=== PATIENT | female | born 1950 | race Caucasian/White ===

== ENCOUNTER 2017-02-17 10:23 | Day surgery (SDC) | payer MEDICARE, SELFPAY ==
[2017-02-17 10:47] VITALS: BP 196/79; PULSE 62; RESP 18; TEMP 36.8; O2SAT 100
[2017-02-17 10:57] VITALS: BP 161/73; PULSE 65; RESP 18; TEMP 36.8; O2SAT 98
[2017-02-17 11:30] VITALS: BP 139/75; PULSE 75; RESP 20
[2017-02-17 11:31] VITALS: BP 180/95; PULSE 80; RESP 18
--- NOTE | 2017-02-17 11:31 | HMH.PMPROC ---
- Procedure Date: 02/17/17 (n) Time: 11:32 Anesthesiologist:: Arturo Mcarthur CRNA Complications:: None Pre-procedure Diagnosis:: right sacroiliitis Post-procedure Diagnosis:: Same Indications for Procedure:: Very pleasant 67-year-old white female we have been treating for quite some time for chronic low back pain secondary to degenerative disc disease lumbar multiple levels. Lumbar postlaminectomy syndrome. She currently is being managed with intrathecal pain pump. She is doing very well in terms of her low back pain. However, she has right SI joint pain that she describes as sharp, stabbing. She presents to our procedure clinic today for right SI joint injection per Procedure Details:: Procedure: Right sacroliliac joint injection under fluoroscopy Informed consent was obtained and the risk and benefits of the procedure were explained to the patient.~ The patient was taken to the procedure room and noninvasive monitors were placed including noninvasive blood pressure cuff and pulse oximeter.~ The patient was placed prone on the procedure table.~ The~ right hip was cleansed using Betadine as a cleansing solution.~ C-arm fluorosocpy was used to view the right SI joint.~ The skin and subcutaneous tissues were anesthetized using Lidocaine 1.5% and a 25-gauge needle.~ After this, a 22-gauge spinal needle was inserted under fluoroscopic guidance into the inferior aspect of the right SI joint.~ Omnipaque dye was injected and a good spread was seen throughout the joint.~ After this, approximately 5 mL of bupivacaine 0.25% and Depo-Medrol 40 mg was incrementally injected into the sacroiliac joint.~ The patient tolerated the procedure well with no complications.~ The patient was observed in the Pain Clinic, then discharged home neurologically intact.~ Plan and Disposition:: She was reevaluated 10 minutes post procedure. She is doing very well. She will return to see us in the pain quite further evaluation.
== END 2017-02-17 11:44 | disposition home or self-care (01) ==
LOC: SC.PAINP 10:26
PROVIDERS: Family Provider Internal Medicine Adolescent Medicine; PCP Internal Medicine Adolescent Medicine; Visit Provider Nurse Anesthetist, Certified Registered
DX: M46.1 Sacroiliitis, not elsewhere classified (principal)
CPT/HCPCS: 27096; G0260; J1040

== ENCOUNTER → 2017-03-13 08:57 | Day surgery (SDC) | payer MEDICARE, SELFPAY ==
[2017-03-13 09:05] VITALS: BP 176/77; PULSE 72; RESP 18; TEMP 36.4; O2SAT 97; BMI 24.5
--- NOTE | 2017-03-13 09:10 | HMH.PMPROC ---
- Procedure Date: 03/13/17 Time: 09:10 Anesthesiologist:: Kerwin Jason MD Complications:: None Pre-procedure Diagnosis:: Degenerative disc disease of lumbar spine multiple levels with postlaminectomy syndrome and sacroiliitis Post-procedure Diagnosis:: Same Indications for Procedure:: This patient is a pleasant 67 white female who we have been treating for low back pain with degenerative disc disease of lumbar spine multiple levels and postlaminectomy home. She currently has an intrathecal Dilaudid pain pump currently going at 1 mg per day. She is doing well with her pump. Her last increase was a little too much so we will decrease her down today 20% to 0.8 mg per day. He does have an antalgic gait. Motor strength of the lower extremities is 5/5. There is no gross sensory deficit. Procedure Details:: Informed consent was obtained and the risks and benefits of the procedure was explained to the patient. The patient was taken to the procedure room. The pump was interrogated. The area over the pump was prepped using ChloraPrep. The pump was accessed with a 22-gauge needle. Approximately 6.5 mL's of the intrathecal solution was withdrawn and discarded. The pump was then refilled with 20 mL's of intrathecal Dilaudid 10 mg per ml. The pump was interrogated and the infusion was decreased to 0.8 mg per day. The patient tolerated the procedure well with no complication. Plan and Disposition:: We will follow-up with her at her next pump refill. If she needs another SI joint injection she is to call us in the pain clinic.
[2017-03-13 09:16] VITALS: BP 148/80; PULSE 7; RESP 18; O2SAT 96
[2017-03-13 09:18] VITALS: PULSE 74; RESP 20; O2SAT 94
[2017-03-13 09:28] VITALS: BP 182/79; PULSE 66; RESP 18; TEMP 36.4; O2SAT 96
== END ==
PROVIDERS: Family Provider Internal Medicine Adolescent Medicine; PCP Internal Medicine Adolescent Medicine; Visit Provider Anesthesiology
DX: M51.36 Other intervertebral disc degeneration, lumbar region (principal); M96.1 Postlaminectomy syndrome, not elsewhere classified
CPT/HCPCS: 62370

== ENCOUNTER 2017-04-17 09:21 | Day surgery (SDC) | payer MEDICARE, SELFPAY ==
[2017-04-17 09:49] VITALS: BP 144/73; PULSE 74; RESP 18; TEMP 36.7; O2SAT 96; BMI 24.0
--- NOTE | 2017-04-17 11:05 | HMH.PMPROC ---
- Procedure Date: 04/17/17 Time: 11:05 Anesthesiologist:: Kerwin Jason MD Complications:: None Pre-procedure Diagnosis:: Sacroiliitis Post-procedure Diagnosis:: Same Indications for Procedure:: This patient is a pleasant 67-year-old white female who we have been treating for low back pain with degenerative disease of lumbar spine multiple levels with postlaminectomy syndrome. She is tender over her right SI joint. She does have a positive Kirstin's test on the right side. We will do a right SI joint injection under fluoroscopy today to see if this gives her some additional benefit. She is also doing well on her intrathecal Dilaudid pain pump. Procedure Details:: Right SI joint injection under fluoroscopy Informed consent was obtained and the risks and benefits of the procedure was going to the patient. Patient was taken to the procedure room. Patient was placed prone on the procedure table. The right hip was prepped using ChloraPrep. The skin and subcutaneous tissues were anesthetized using lidocaine. I placed a 22-gauge spinal needle into the inferior aspect of the right SI joint. Needle placement was confirmed with dye. After this we injected 5 mL bupivacaine 0.25% and Depo-Medrol 40 mg into the right SI joint. The patient tolerated the procedure well with no complication. Plan and Disposition:: We will follow-up with her in 2 weeks. We will reevaluate her symptoms at that time.
[2017-04-17 11:07] VITALS: BP 185/96; PULSE 84; RESP 18
[2017-04-17 11:09] VITALS: BP 184/75; PULSE 80; RESP 18
[2017-04-17 11:18] VITALS: BP 161/71; PULSE 88; RESP 18; TEMP 36.4; O2SAT 95
== END 2017-04-17 11:20 | disposition home or self-care (01) ==
LOC: SC.PAINP 09:22
PROVIDERS: Family Provider Internal Medicine Adolescent Medicine; PCP Internal Medicine Adolescent Medicine; Visit Provider Anesthesiology
DX: M46.1 Sacroiliitis, not elsewhere classified (principal)
CPT/HCPCS: 27096; G0260; J1040; Q9966

== ENCOUNTER → 2017-05-04 09:31 | Outpatient (POV) | payer MEDICARE, SELFPAY ==
[2017-05-04 09:50] VITALS: BP 216/90; PULSE 74; RESP 18; TEMP 36.5; O2SAT 99; BMI 24.1
--- NOTE | 2017-05-04 10:14 | HMH.PMPROC ---
- Procedure Date: 05/04/17 Time: 10:00 Anesthesiologist:: Geno Stout APRN Complications:: None Pre-procedure Diagnosis:: Degenerative disc disease of the lumbar spine, postlaminectomy syndrome and sacroiliitis Post-procedure Diagnosis:: Same Indications for Procedure:: This patient is a pleasant 67-year-old white female who presents today for follow-up after left SI joint injection. Patient states she did get some moderate relief from it. Patient has never had full relief of her symptoms. Patient currently on Lyrica 150 mg twice daily. Patient is also taking Percocet 5 mg twice a day for her other pain. Patient states the pump is helping. Patient is wondering however if she needs to take it out due to her increase in SI pain. Patient and I had a long discussion about how the pump does not cover SI joint pain. Patient was also interested in nerve stimulation. Patient's currently being managed with a Dilaudid and bupivacaine infusion of 0.8 mg a day. Patient denies any side effects. We will increase this today. Physical Exam General: Alert and oriented x3, no acute distress, pleasant and cooperative, [on room air] Lungs: Resps E/U, Symmetrical chest expansion Eyes: PERRL Musculoskeletal: Flexion and extension of lumbar spine somewhat guarded secondary to pain, deep tendon reflexes normal, strength in upper and lower extremities [5/5], lightly antalgic gait noted Neurological: speech clear, seamless hosiery knitter equal, no gross sensory deficits Procedure Details:: Form consent was obtained and the risk and benefits of the procedure were explained to the patient. The patient was taken to the procedure room where noninvasive monitoring was placed including noninvasive blood pressure cuff and pulse oximeter. The pump was interrogated and the daily rate was changed from 0.8 mg per day to 1 mg per day. Patient's PTC was changed to 0.1 mg every 4 hours up to 6 times a day. Patient tolerated procedure well. Was instructed to call our office if she has any side effects. Plan and Disposition:: Patient is currently on Lyrica 150 mg 1 p.o. twice daily we will increase her to 150 mg 1 p.o. 3 times daily. I gave the patient nerve stimulation information she is going to review this and we will discuss that at her next appointment. I will see the patient back when her pain pump needs refilling. Patient's [facility] #[id number] reviewed and appropriate. Patient will be having a urine drug screen today. We will continue to monitor compliance. This note was dictated using voice recognition software may contain errors or omissions
--- NOTE | 2017-05-04 10:18 | P.PCN_ITS ---
- Procedure Date: 05/04/17 Time: 10:00 Anesthesiologist:: Geno Stout APRN Complications:: None Pre-procedure Diagnosis:: Degenerative disc disease of the lumbar spine, postlaminectomy syndrome and sacroiliitis Post-procedure Diagnosis:: Same Indications for Procedure:: This patient is a pleasant 67-year-old white female who presents today for follow-up after left SI joint injection. Patient states she did get some moderate relief from it. Patient has never had full relief of her symptoms. Patient currently on Lyrica 150 mg twice daily. Patient is also taking Percocet 5 mg twice a day for her other pain. Patient states the pump is helping. Patient is wondering however if she needs to take it out due to her increase in SI pain. Patient and I had a long discussion about how the pump does not cover SI joint pain. Patient was also interested in nerve stimulation. Patient's currently being managed with a Dilaudid and bupivacaine infusion of 0.8 mg a day. Patient denies any side effects. We will increase this today. Physical Exam General: Alert and oriented x3, no acute distress, pleasant and cooperative, [ on room air] Lungs: Resps E/U, Symmetrical chest expansion Eyes: PERRL Musculoskeletal: Flexion and extension of lumbar spine somewhat guarded secondary to pain, deep tendon reflexes normal, strength in upper and lower extremities [5/5], lightly antalgic gait noted Neurological: speech clear, substation technician equal, no gross sensory deficits Procedure Details:: Form consent was obtained and the risk and benefits of the procedure were explained to the patient. The patient was taken to the procedure room where noninvasive monitoring was placed including noninvasive blood pressure cuff and pulse oximeter. The pump was interrogated and the daily rate was changed from 0.8 mg per day to 1 mg per day. Patient's PTC was changed to 0.1 mg every 4 hours up to 6 times a day. Patient tolerated procedure well. Was instructed to call our office if she has any side effects. Plan and Disposition:: Patient is currently on Lyrica 150 mg 1 p.o. twice daily we will increase her to 150 mg 1 p.o. 3 times daily. I gave the patient nerve stimulation information she is going to review this and we will discuss that at her next appointment. I will see the patient back when her pain pump needs refilling. Patient's [facility] #[id number] reviewed and appropriate. Patient will be having a urine drug screen today. We will continue to monitor compliance. This note was dictated using voice recognition software may contain errors or omissions
[2017-05-04 13:23] LABS: Amphetamine/Metha Screen,Urine Negative ng/mL (<1000); Barbiturates Screen,Urine Negative ng/mL (<200); Benzodiazepines Screen,Urine Negative ng/mL (200); Cannabinoid Screen,Urine Negative ng/mL (<50); Cocaine Screen,Urine Negative ng/g (<300); Methadone Screen,Urine Negative ng/mL (<300); Opiate Screen,Urine Negative ng/mL (<300); Phencyclidine Screen,Urine Negative ng/mL (<25)
[2017-05-09 10:20] LABS: Oxycodone (GC/MS) 212 ng/mL (Cutoff=100)
[2017-05-09 18:37] LABS: Opiates Negative (Cutoff=100); Oxymorphone (GC/MS) 477 ng/mL (Cutoff=100)
== END ==
PROVIDERS: Family Provider Internal Medicine Adolescent Medicine; PCP Internal Medicine Adolescent Medicine; Visit Provider Clinical Nurse Specialist Family Health
DX: M46.1 Sacroiliitis, not elsewhere classified (principal); M51.36 Other intervertebral disc degeneration, lumbar region; Z79.891 Long term (current) use of opiate analgesic
CPT/HCPCS: 99212; 80305; 80361; 80365; G0480

== ENCOUNTER → 2017-05-27 12:09 | Outpatient (CLI) | payer MEDICARE, SELFPAY ==
[2017-05-27 12:45] LABS: Basophils % 0.7 % (0.1-2.0); Eosinophils # 0.2 K/mm3 (0.0-0.4); Hematocrit 35.6 % (37.0-47.0); Hemoglobin 11.6 g/dL (12.2-16.2); Lymphocytes # 1.1 K/mm3 (0.7-4.5); Lymphocytes % 21.4 K/mm3 (10-50); Mean Corpuscular HGB Conc 32.7 g/dL (31.8-35.4); Mean Corpuscular Hemoglobin 32.6 pg (27.0-31.2); Mean Corpuscular Volume 99.7 fl (81-99); Mean Platelet Volume 7.3 fl (7.4-10.4); Monocytes # 0.3 K/mm3 (0.1-1.0); Monocytes % 6.1 % (1.7-9.3); Neutrophils # 3.6 K/mm3 (1.8-7.8); Neutrophils % 68.7 % (37.0-80.0); Platelet Count 317 K/mm3 (142-424); Red Blood Count 3.57 M/mm3 (4.20-5.40); Red Cell Distribution Width 13.9 % (11.5-17.5); White Blood Count 5.3 K/mm3 (4.8-10.8)
[2017-05-27 15:24] LABS: Alanine Aminotransferase 16 U/L (12-78); Albumin Level 3.2 gm/dL (3.4-5.0); Alkaline Phosphatase 94 U/L (46-116); Anion Gap 10.1 mEq/L (5-15); Bilirubin,Total 0.3 mg/dL (0.2-1.0); Blood Urea Nitrogen 9 mg/dL (7-18); Calcium 8.9 mg/dL (8.5-10.1); Carbon Dioxide 31 mmol/L (21.0-32.0); Chloride 95 mmol/L (98-107); Cholesterol 146 mg/dL (140-200); Creatinine,Serum 0.87 mg/dL (0.55-1.02); Estimated Glomerular Filt Rate 65 ml/min (>60); Ferritin 286 ng/mL (8-388); GFR (African American) 79 ML/MIN (>60); Globulin 3.2 gm/dl (1.3-3.2); Glucose 88 mg/dL (74-106); HDL Cholesterol 48 mg/dL (29-89); LDL Cholesterol 72 mg/dL (0-130); Sodium 131 mmol/L (136-145); Thyroid Stimulating Hormone 1.39 uIU/ml (0.358-3.740); Total Protein,Serum 6.4 gm/dL (6.4-8.2); Triglycerides 131 mg/dL (30-200); VLDL Cholesterol 26 mg/dL (0-40)
[2017-05-27 15:30] LABS: Potassium 5.1 mmoL/L (3.5-5.1)
[2017-05-27 15:31] LABS: Aspartate Amino Transferase 27 U/L (15-37)
[2017-05-29 10:48] LABS: Vitamin B12 1718 pg/mL (232-1245)
== END ==
PROVIDERS: Visit Provider Internal Medicine Adolescent Medicine
DX: E53.8 Deficiency of other specified B group vitamins (principal); D50.8 Other iron deficiency anemias; E78.5 Hyperlipidemia, unspecified; E03.9 Hypothyroidism, unspecified
CPT/HCPCS: 36415; 80053; 80061; 82607; 82728; 84443; 85025

== ENCOUNTER → 2017-10-19 15:16 | Outpatient (POV) | payer MEDICARE, SELFPAY ==
[2017-10-19 15:47] VITALS: BP 184/81; PULSE 79; RESP 18; O2SAT 98; BMI 25.2
--- NOTE | 2017-10-19 16:38 | HMH.PMPROC ---
- Procedure Date: 10/19/17 Time: 16:30 Anesthesiologist:: Geno Stout APRN Complications:: None Pre-procedure Diagnosis:: degenerative disc disease lumbar spine with lumbar radiculopathy, postlaminectomy syndrome and sacroiliitis Post-procedure Diagnosis:: Same Indications for Procedure:: Patient is a pleasant 67-year-old white female who presents today for follow-up. Patient has an intrathecal pain pump going at 0.1 mg every 2 hours for total daily dose of 1.32 mg of Dilaudid/bupivacaine a day. Patient is having increased pain. Patient also having migraines. Patient also medically managed with Percocet 5 mg 1 p.o. twice daily. Denies side effects to any of her medication. Patient's [facility] #[id number] reviewed and appropriate. Patient's UDS has been appropriate in the past. Patient would like an increase to her intrathecal pain pump infusion today due to her increased pain. Physical Exam General: Alert and oriented x3, no acute distress, pleasant and cooperative, [on room air] Lungs: Resps E/U, Symmetrical chest expansion, Eyes: PERRL Musculoskeletal: Flexion and extension of lumbar spine somewhat guarded secondary to pain, deep tendon reflexes normal, strength in upper and lower extremities [5/5], [abnormal gait noted] positive Kirstin's test right side Neurological: speech clear, sight effects specialist equal, no gross sensory deficits Procedure Details:: Informed consent was obtained and the risk and benefits of the procedure were explained to the patient. The patient was taken to the procedure room where noninvasive monitoring was placed including noninvasive blood pressure cuff and pulse oximeter. Patient's pump was interrogated. The infusion rate was increased to 0.17 mg every 2 hours. The patient tolerated the procedure well. Plan and Disposition:: We will refill the patient's Percocet 5 mg [address] Jason is reviewed this chart and agrees with this plan of care. We will send her to physical therapy for dry needling of the right SI joint. I believe it may be beneficial. I will follow-up with the patient in 1 month. Patient's been instructed to call the office if she has any issues prior to her next appointment. This note was dictated using voice recognition software and may contain errors or omissions
--- NOTE | 2017-10-19 16:41 | P.PCN_ITS ---
- Procedure Date: 10/19/17 Time: 16:30 Anesthesiologist:: Geno Stout APRN Complications:: None Pre-procedure Diagnosis:: degenerative disc disease lumbar spine with lumbar radiculopathy, postlaminectomy syndrome and sacroiliitis Post-procedure Diagnosis:: Same Indications for Procedure:: Patient is a pleasant 67-year-old white female who presents today for follow-up. Patient has an intrathecal pain pump going at 0.1 mg every 2 hours for total daily dose of 1.32 mg of Dilaudid/bupivacaine a day. Patient is having increased pain. Patient also having migraines. Patient also medically managed with Percocet 5 mg 1 p.o. twice daily. Denies side effects to any of her medication. Patient's [facility] #[id number] reviewed and appropriate. Patient's UDS has been appropriate in the past. Patient would like an increase to her intrathecal pain pump infusion today due to her increased pain. Physical Exam General: Alert and oriented x3, no acute distress, pleasant and cooperative, [on room air] Lungs: Resps E/U, Symmetrical chest expansion, Eyes: PERRL Musculoskeletal: Flexion and extension of lumbar spine somewhat guarded secondary to pain, deep tendon reflexes normal, strength in upper and lower extremities [5/5], [abnormal gait noted] positive Kirstin's test right side Neurological: speech clear, surgical garment inspector equal, no gross sensory deficits Procedure Details:: Informed consent was obtained and the risk and benefits of the procedure were explained to the patient. The patient was taken to the procedure room where noninvasive monitoring was placed including noninvasive blood pressure cuff and pulse oximeter. Patient's pump was interrogated. The infusion rate was increased to 0.17 mg every 2 hours. The patient tolerated the procedure well. Plan and Disposition:: We will refill the patient's Percocet 5 mg [address] Jason is reviewed this chart and agrees with this plan of care. We will send her to physical therapy for dry needling of the right SI joint. I believe it may be beneficial. I will follow-up with the patient in 1 month. Patient's been instructed to call the office if she has any issues prior to her next appointment. This note was dictated using voice recognition software and may contain errors or omissions
== END ==
PROVIDERS: Family Provider Internal Medicine Adolescent Medicine; PCP Internal Medicine Adolescent Medicine; Visit Provider Clinical Nurse Specialist Family Health
DX: M51.16 Intervertebral disc disorders with radiculopathy, lumbar region (principal); M96.1 Postlaminectomy syndrome, not elsewhere classified; M46.1 Sacroiliitis, not elsewhere classified
CPT/HCPCS: 62368; 99213

== ENCOUNTER → 2017-11-27 12:14 | Outpatient (CLI) | payer MEDICARE, SELFPAY ==
--- NOTE | 2017-11-27 12:34 | XR_ITS ---
XR chest 2V HISTORY: ITS.REASON: COUGH, history of lung cancer, previous smoker ORDERING PHYSICIAN: Benny Brooke MD PATIENT AGE: 67 years COMPARISON: None FINDINGS: There are no previous exams available for comparison. The heart size is unremarkable. There is increased density in the left hilum and suprahilar region as well as a left upper lobe medially. These findings could be due to postradiation treatment and/or residual neoplasm. Please correlate with patient's old exams if available. There is also silhouetting out of the left hemidiaphragm with some tenting of the hemidiaphragm on the left which could be either acute or chronic. The right lung is clear. No acute bony anomalies. IMPRESSION: Nonspecific increased density in the left upper lobe medially and left hilum. This could be due to postradiation changes and or residual neoplasm. Patchy density left lung base which may be due to an area of atelectasis, infiltrate, or fibrosis
[2017-11-27 12:54] LABS: Basophils % 0.9 % (0.1-2.0); Eosinophils # 0.3 K/mm3 (0.0-0.4); Eosinophils % 6.8 % (0.1-12.0); Hematocrit 36.8 % (37.0-47.0); Hemoglobin 11.9 g/dL (12.2-16.2); Lymphocytes # 1.1 K/mm3 (0.7-4.5); Lymphocytes % 29.4 K/mm3 (10-50); Mean Corpuscular HGB Conc 32.4 g/dL (31.8-35.4); Mean Corpuscular Hemoglobin 32.4 pg (27.0-31.2); Mean Corpuscular Volume 100.2 fl (81-99); Mean Platelet Volume 6.6 fl (7.4-10.4); Monocytes # 0.2 K/mm3 (0.1-1.0); Monocytes % 6.3 % (1.7-9.3); Neutrophils # 2.1 K/mm3 (1.8-7.8); Neutrophils % 56.6 % (37.0-80.0); Platelet Count 301 K/mm3 (142-424); Red Blood Count 3.68 M/mm3 (4.20-5.40); Red Cell Distribution Width 13.1 % (11.5-17.5); White Blood Count 3.8 K/mm3 (4.8-10.8)
[2017-11-27 14:32] LABS: Alanine Aminotransferase 19 U/L (12-78); Albumin Level 3.4 gm/dL (3.4-5.0); Albumin/Globulin Ratio 1.2 (1.1-1.8); Alkaline Phosphatase 97 U/L (46-116); Anion Gap 11.4 mEq/L (5-15); Aspartate Amino Transferase 20 U/L (15-37); Bilirubin,Total 0.3 mg/dL (0.2-1.0); Blood Urea Nitrogen 9 mg/dL (7-18); Calcium 8.7 mg/dL (8.5-10.1); Carbon Dioxide 31 mmol/L (21.0-32.0); Chloride 100 mmol/L (98-107); Chol/HDL Ratio 2.7 (1-3.5); Cholesterol 138 mg/dL (140-200); Creatinine,Serum 1.03 mg/dL (0.55-1.02); Estimated Glomerular Filt Rate 54 ml/min (>60); Free Thyroxine Index 2.8 ug/dL (5.93-13.13); GFR (African American) 65 ML/MIN (>60); Globulin 2.8 gm/dl (1.3-3.2); Glucose 81 mg/dL (74-106); HDL Cholesterol 51 mg/dL (29-89); LDL Cholesterol 55 mg/dL (0-130); Potassium 4.4 mmoL/L (3.5-5.1); Sodium 138 mmol/L (136-145); Thyroid Stimulating Hormone 2.33 uIU/ml (0.358-3.740); Total Protein,Serum 6.2 gm/dL (6.4-8.2); Triglycerides 161 mg/dL (30-200); Triiodothryronine (T3) Uptake 35 % (31-39); VLDL Cholesterol 32 mg/dL (0-40)
[2017-11-28 10:21] LABS: Vitamin B12 1870 pg/mL (232-1245)
== END ==
PROVIDERS: PCP Internal Medicine Adolescent Medicine; Visit Provider Internal Medicine Adolescent Medicine
DX: E78.5 Hyperlipidemia, unspecified (principal); E03.9 Hypothyroidism, unspecified; E53.8 Deficiency of other specified B group vitamins; D50.8 Other iron deficiency anemias; R05 Cough
CPT/HCPCS: 36415; 71046; 80053; 80061; 82607; 84436; 84443; 84479; 85025

== ENCOUNTER → 2017-12-01 11:48 | Outpatient (POV) | payer MEDICARE, SELFPAY ==
[2017-12-01 12:10] VITALS: BP 163/78; PULSE 86; RESP 20; O2SAT 98; BMI 25.7
--- NOTE | 2017-12-01 13:18 | HMH.PMPROC ---
- Procedure Date: 12/01/17 Time: 13:18 Anesthesiologist:: Kerwin Jason MD Complications:: None Pre-procedure Diagnosis:: Degenerative disc disease of lumbar spine with lumbar radiculopathy symptoms and postlaminectomy syndrome lumbar spine with sacroiliitis Post-procedure Diagnosis:: Same Indications for Procedure:: This patient is a pleasant 67-year-old white female who currently has an intrathecal Dilaudid/bupivacaine pain pump going at 2.4 mg/day for low back pain, leg pain and chest wall pain. She continues to have increasing pain in her low back and legs. She also has migraines. She is unable to do any housework in functionality has decreased significantly. She does not feel that her pump is helping her. She is done several injections again which have only given her temporary benefit. We will plan to decrease her intrathecal infusion to 50% today. We will work towards explant. I have talked her possibly about trialing spinal cord stimulator to see if this may help better with her pain symptoms. Procedure Details:: Adjustment and analysis of intrathecal pain pump Informed consent was obtained and the risk and benefits of the procedure was explained to the patient. Patient was taken to the procedure room. The pump was interrogated. Intrathecal Dilaudid/bupivacaine infusion was decreased to 1.2 mg/day from 2.4 mg/day. Patient tolerated the procedure well with no complications. Plan and Disposition:: We will follow-up with her in 1 week. We will reevaluate her symptoms. Will further decrease her 50% depending on her symptoms. Again I have offered her spinal cord stimulation as an alternative to help with her pain symptoms.
== END ==
PROVIDERS: Family Provider Internal Medicine Adolescent Medicine; PCP Internal Medicine Adolescent Medicine; Visit Provider Anesthesiology
DX: M51.36 Other intervertebral disc degeneration, lumbar region (principal); M96.1 Postlaminectomy syndrome, not elsewhere classified
CPT/HCPCS: 62368

== ENCOUNTER → 2017-12-18 10:12 | Outpatient (POV) | payer MEDICARE, SELFPAY ==
[2017-12-18 11:29] VITALS: BP 184/79; PULSE 70; RESP 18; O2SAT 96; BMI 22.8
--- NOTE | 2017-12-18 11:38 | P.PCN_ITS ---
- Procedure Date: 12/18/17 Time: 11:36 Anesthesiologist:: Kerwin Jason MD Complications:: None Pre-procedure Diagnosis:: Degenerative disc disease of lumbar spine with lumbar radiculopathy symptoms. Degenerative disc disease of the cervical spine with cervical radiculopathy symptoms. Post laminectomy syndrome lumbar spine with sacroiliitis Post-procedure Diagnosis:: Same Indications for Procedure:: Patient is a pleasant 67-year-old white female who currently has an intrathecal Dilaudid/bupivacaine pain pump in place going at 1.2 mg/day. We decrease her 50% at her last visit. She is low back pain, leg pain, chest wall pain, neck pain and migraines. She has not noticed a significant difference in her pain symptoms. She actually seems in a better mood in better spirits today than previously. We will further decrease her 50% to 0.6 mg/day in hopes of weaning her off intrathecal pain pump. Procedure Details:: Adjustment of intrathecal pain pump infusion Informed consent was obtained and the risk and benefits of the procedure was explained to the patient. Patient was taken to the procedure room. Intrathecal Dilaudid/bupivacaine pain pump infusion was decreased to 0.6 mg per day from 1.2 mg/day. Patient tolerated the procedure well with no complications. Plan and Disposition:: We will follow-up with her in 2 weeks. We will reevaluate her symptoms. We will further decrease her at that time to 0.3 mg/day in hopes of weaning her completely off her intrathecal pain pump infusion. She also has significant pa in over the right trochanteric bursa. She is tender over the right trochanteric bursa. We will seek approval for a right trochanteric bursa injection under fluoroscopy
== END ==
PROVIDERS: PCP Internal Medicine Adolescent Medicine; Visit Provider Anesthesiology
DX: M51.16 Intervertebral disc disorders with radiculopathy, lumbar region (principal); M50.10 Cervical disc disorder with radiculopathy, unspecified cervical region; M96.1 Postlaminectomy syndrome, not elsewhere classified; M46.1 Sacroiliitis, not elsewhere classified
CPT/HCPCS: 62368

== ENCOUNTER → 2018-01-08 14:43 | Outpatient (POV) | payer MEDICARE, SELFPAY ==
[2018-01-08 15:05] VITALS: BP 191/86; PULSE 75; RESP 18; O2SAT 98; BMI 25.9
--- NOTE | 2018-01-08 16:24 | HMH.PMPROC ---
- Procedure Date: 01/08/18 Time: 16:29 Anesthesiologist:: Kerwin Jason MD Complications:: None Pre-procedure Diagnosis:: Degenerative disc disease of lumbar spine with lumbar radiculopathy symptoms and postlaminectomy syndrome lumbar spine. Post-procedure Diagnosis:: Same Indications for Procedure:: Degenerative disc disease of lumbar spine with lumbar radiculopathy symptoms and postlaminectomy syndrome of lumbar spine with trochanteric bursitis and sacroiliitis. She also has degenerative disc disease of the cervical spine with cervical radiculopathy symptoms. She is not getting much relief from her Dilaudid/bupivacaine pain pump. We will turn her pump off today. We will increase her Percocet to 5 mg 4 times a day. We will also schedule her for repeat right trochanteric bursa and right SI joint injection under fluoroscopy. Procedure Details:: Reprogram of intrathecal pain pump infusion Consent was obtained and the risk and benefits of the procedure was explained to the patient. Patient was taken to the procedure room. The pump was interrogated. Intrathecal Dilaudid/bupivacaine pain pump was turned off. Patient tolerated the procedure well with no complications. Plan and Disposition:: We will follow-up with her in 2 weeks. We will plan on a right SI joint and right trochanteric bursa injection. We will also increase her Percocet to 5 mg 1 tablet 4 times a day. She just filled her Percocet 5 mg 1 tablet twice a day on 12/23/2017. I told her to increase this to 4 times a day. We will write her a new prescription. [place] and urine drug screen are all appropriate.
== END ==
PROVIDERS: PCP Internal Medicine Adolescent Medicine; Visit Provider Anesthesiology
DX: M51.16 Intervertebral disc disorders with radiculopathy, lumbar region (principal); M96.1 Postlaminectomy syndrome, not elsewhere classified
CPT/HCPCS: 62368

== ENCOUNTER → 2018-01-26 11:11 | Outpatient (POV) | payer MEDICARE, SELFPAY ==
[2018-01-26 11:43] VITALS: BP 140/75; PULSE 88; RESP 18; O2SAT 98; BMI 25.4
--- NOTE | 2018-01-26 12:25 | P.PCN_ITS ---
- Procedure Date: 01/26/18 Time: 11:30 Anesthesiologist:: Geno Stout APRN Complications:: None Pre-procedure Diagnosis:: Degenerative disc disease lumbar spine, chest wall pain Post-procedure Diagnosis:: Same Indications for Procedure:: Patient is a pleasant 68-year-old white female who presents today carefully she rates her pain a 10 out of 10 she states she is in constant pain. Patient's intrathecal pain pump was turned off patient stated she did not believe it was helping however she is noticed that her chest wall pain secondary to chemo has returned. Patient states she is miserable. Patient and I had a discussion in which way she would like to go now. We will try turning her pain pump back on. She has a Dilaudid intrathecal pain pump. Physical Exam General: Alert and oriented x3, no acute distress, pleasant and cooperative, [on room air] Lungs: Resps E/U, Symmetrical chest expansion, Eyes: PERRL Musculoskeletal: Flexion and extension of lumbar and thoracic spine somewhat guarded secondary to pain, deep tendon reflexes normal, strength in upper and lower extremities [5/5], [abnormal gait noted] Neurological: speech clear, shipboard intelligence analyst equal, no gross sensory deficits Procedure Details:: Informed consent was obtained and the risk and benefits of the procedure were explained to the patient. The patient was taken to the procedure room where noninvasive monitoring was placed including noninvasive blood pressure cuff and pulse oximeter. Patient's pump was interrogated. The infusion rate was started at 0.1 mg/day. The patient tolerated the procedure well. Plan and Disposition:: We will see the patient back in 2 weeks and reassess her symptoms at that time. At this time she does Percocet 5 mg 1 p.o. 4 times daily. I discussed with her that she could continue taking that at this time. This note was dictated using voice recognition software and may contain errors or omissions
== END ==
PROVIDERS: PCP Internal Medicine Adolescent Medicine; Visit Provider Clinical Nurse Specialist Family Health
DX: M51.36 Other intervertebral disc degeneration, lumbar region (principal); R07.89 Other chest pain; Z96.89 Presence of other specified functional implants
CPT/HCPCS: 62368

== ENCOUNTER → 2018-02-05 11:49 | Outpatient (POV) | payer MEDICARE, SELFPAY ==
[2018-02-05 11:59] VITALS: BP 160/78; PULSE 78; RESP 16; O2SAT 98; BMI 21.2
--- NOTE | 2018-02-05 12:59 | HMH.PAINSOAP ---
[facility] Pain Management SOAP Note Subjective:: This patient is a pleasant 68-year-old white female who we are treating for low back pain with lumbar radicular symptoms, chest wall pain and migraines. She initially had her pump turned off however her pain in her chest wall and low back increase significantly so she requested that her pump be turned back on. She is currently at 0.1 mg/day of intrathecal Dilaudid. She would like an increase today, however, she is on Percocet 5 mg 4 times a day. I told her that if we do increase her pump we would have to reduce her Percocet. Patient has decided that she would not want to reduce her Percocet so she will remain at the same dose of 0.1 mg/day of intrathecal Dilaudid. She will also continue her Percocet 5 mg 4 times a day. She continues with significant migrainous symptoms. Will refer her to Dr. Thompson for evaluation and recommendations. Objective:: Alert and oriented x3 no acute distress. Patient does have an antalgic gait. Motor strength of the lower extremities is 5/5. There is no gross sensory deficit. Intrathecal Dilaudid pain pump is currently going at 0.1 mg/day. Assessment:: Degenerative disease of lumbar spine with lumbar radiculopathy symptoms. Migraine symptoms. Chest wall pain. Plan:: Patient has decided that she would not want to reduce her Percocet so she will remain at the same dose of 0.1 mg/day of intrathecal Dilaudid. She will also continue her Percocet 5 mg 4 times a day. She continues with significant migrainous symptoms. Will refer her to Dr. Thompson for evaluation and recommendations.
== END ==
PROVIDERS: PCP Internal Medicine Adolescent Medicine; Visit Provider Anesthesiology
DX: M51.16 Intervertebral disc disorders with radiculopathy, lumbar region (principal); R07.89 Other chest pain; R51 Headache
CPT/HCPCS: 99212

== ENCOUNTER → 2018-04-09 15:56 | Outpatient (CLI) | payer MEDICARE, SELFPAY ==
[2018-04-09 17:51] LABS: Basophils % 0.7 % (0.1-2.0); Eosinophils # 0.2 K/mm3 (0.0-0.4); Eosinophils % 4.4 % (0.1-12.0); Hematocrit 34.5 % (37.0-47.0); Hemoglobin 11.5 g/dL (12.2-16.2); Lymphocytes # 1.3 K/mm3 (0.7-4.5); Lymphocytes % 24.1 % (10-50); Mean Corpuscular HGB Conc 33.3 g/dL (31.8-35.4); Mean Corpuscular Hemoglobin 33.5 pg (27.0-31.2); Mean Corpuscular Volume 100.8 fl (81-99); Mean Platelet Volume 6.8 fl (7.4-10.4); Monocytes # 0.3 K/mm3 (0.1-1.0); Monocytes % 5.4 % (1.7-9.3); Neutrophils # 3.6 K/mm3 (1.8-7.8); Neutrophils % 65.5 % (37.0-80.0); Platelet Count 352 K/mm3 (142-424); Red Blood Count 3.42 M/mm3 (4.20-5.40); Red Cell Distribution Width 13.2 % (11.5-17.5); White Blood Count 5.5 K/mm3 (4.8-10.8)
[2018-04-09 18:01] LABS: Alanine Aminotransferase 21 U/L (12-78); Albumin Level 3.2 gm/dL (3.4-5.0); Albumin/Globulin Ratio 1.1 (1.1-1.8); Alkaline Phosphatase 92 U/L (46-116); Anion Gap 12.3 mEq/L (5-15); Aspartate Amino Transferase 14 U/L (15-37); Bilirubin,Total 0.2 mg/dL (0.2-1.0); Blood Urea Nitrogen 8 mg/dL (7-18); Calcium 8.9 mg/dL (8.5-10.1); Carbon Dioxide 29 mmol/L (21.0-32.0); Chloride 99 mmol/L (98-107); Chol/HDL Ratio 3.4 (1-3.5); Cholesterol 154 mg/dL (140-200); Creatinine,Serum 1.13 mg/dL (0.55-1.02); Estimated Glomerular Filt Rate 48 ml/min (>60); Free Thyroxine Index 3.2 ug/dL (5.93-13.13); GFR (African American) 58 ML/MIN (>60); Globulin 2.9 gm/dl (1.3-3.2); Glucose 94 mg/dL (74-106); HDL Cholesterol 45 mg/dL (29-89); LDL Cholesterol 49 mg/dL (0-130); Potassium 5.3 mmoL/L (3.5-5.1); Sodium 135 mmol/L (136-145); T4 (Thyroxine) 8.1 ug/dl (4.7-13.3); Thyroid Stimulating Hormone 1.38 uIU/ml (0.358-3.740); Total Protein,Serum 6.1 gm/dL (6.4-8.2); Triglycerides 300 mg/dL (30-200); Triiodothryronine (T3) Uptake 39 % (31-39); VLDL Cholesterol 60 mg/dL (0-40)
[2018-04-12 13:24] LABS: Vitamin B12 >2000 pg/mL (232-1245)
== END ==
PROVIDERS: Visit Provider Internal Medicine Adolescent Medicine
DX: E03.9 Hypothyroidism, unspecified (principal); E78.5 Hyperlipidemia, unspecified; E53.8 Deficiency of other specified B group vitamins
CPT/HCPCS: 36415; 80053; 80061; 82607; 84436; 84443; 84479; 85025

== ENCOUNTER → 2018-05-11 14:15 | Outpatient (CLI) | payer MEDICARE, SELFPAY ==
[2018-05-11 20:09] LABS: Amphetamine/Metha Screen,Urine Negative ng/mL (<1000); Barbiturates Screen,Urine Negative ng/mL (<200); Benzodiazepines Screen,Urine Negative ng/mL (<200); Cannabinoid Screen,Urine Negative ng/mL (<50); Cocaine Screen,Urine Negative ng/mL (<300); Methadone Screen,Urine Negative ng/mL (<300); Opiate Screen,Urine Negative ng/mL (<300); Phencyclidine Screen,Urine Negative ng/mL (<25)
[2018-05-17 16:13] LABS: Oxycodone (GC/MS) 752 ng/mL (Cutoff=100)
[2018-05-18 06:15] LABS: Opiates Negative (Cutoff=100); Oxymorphone (GC/MS) 1945 ng/mL (Cutoff=100)
== END ==
PROVIDERS: Visit Provider Clinical Nurse Specialist Family Health
DX: Z79.899 Other long term (current) drug therapy (principal)
CPT/HCPCS: 80305; 80361; 80365; G0480

== ENCOUNTER → 2018-09-01 14:25 | Outpatient (CLI) | payer MEDICARE, SELFPAY ==
[2018-09-01 14:42] LABS: Basophils % 0.9 % (0.1-2.0); Eosinophils # 0.1 K/mm3 (0.0-0.4); Eosinophils % 2.1 % (0.1-12.0); Hematocrit 35.5 % (37.0-47.0); Hemoglobin 11.4 g/dL (12.2-16.2); Lymphocytes # 1.2 K/mm3 (0.7-4.5); Lymphocytes % 30.6 % (10-50); Mean Corpuscular HGB Conc 32.1 g/dL (31.8-35.4); Mean Corpuscular Hemoglobin 30.1 pg (27.0-31.2); Mean Corpuscular Volume 93.8 fl (81-99); Mean Platelet Volume 6.4 fl (7.4-10.4); Monocytes # 0.3 K/mm3 (0.1-1.0); Monocytes % 8.1 % (1.7-9.3); Neutrophils # 2.3 K/mm3 (1.8-7.8); Neutrophils % 58.3 % (37.0-80.0); Platelet Count 316 K/mm3 (142-424); Red Blood Count 3.79 M/mm3 (4.20-5.40); Red Cell Distribution Width 13.7 % (11.5-17.5)
[2018-09-01 16:18] LABS: Alanine Aminotransferase 19 U/L (12-78); Albumin Level 3.4 gm/dL (3.4-5.0); Albumin/Globulin Ratio 1.3 (1.1-1.8); Alkaline Phosphatase 95 U/L (46-116); Anion Gap 9.4 mEq/L (5-15); Aspartate Amino Transferase 11 U/L (15-37); Bilirubin,Total 0.5 mg/dL (0.2-1.0); Blood Urea Nitrogen 7 mg/dL (7-18); Calcium 8.7 mg/dL (8.5-10.1); Carbon Dioxide 30 mmol/L (21.0-32.0); Chloride 90 mmol/L (98-107); Chol/HDL Ratio 2.8 (1-3.5); Cholesterol 137 mg/dL (140-200); Creatinine,Serum 1.14 mg/dL (0.55-1.02); Estimated Glomerular Filt Rate 48 ml/min (>60); Ferritin 396 ng/mL (8-388); Free Thyroxine Index 2.7 ug/dL (5.93-13.13); GFR (African American) 58 ML/MIN (>60); Globulin 2.7 gm/dl (1.3-3.2); Glucose 82 mg/dL (74-106); HDL Cholesterol 49 mg/dL (29-89); LDL Cholesterol 55 mg/dL (0-130); Potassium 4.4 mmoL/L (3.5-5.1); Sodium 125 mmol/L (136-145); T4 (Thyroxine) 7.4 ug/dl (4.7-13.3); Thyroid Stimulating Hormone 0.72 uIU/ml (0.358-3.740); Total Protein,Serum 6.1 gm/dL (6.4-8.2); Triglycerides 164 mg/dL (30-200); Triiodothryronine (T3) Uptake 36 % (31-39); VLDL Cholesterol 33 mg/dL (0-40)
== END ==
PROVIDERS: Visit Provider Internal Medicine Adolescent Medicine
DX: D50.8 Other iron deficiency anemias (principal); I10 Essential (primary) hypertension; E03.9 Hypothyroidism, unspecified
CPT/HCPCS: 36415; 80053; 80061; 82728; 84436; 84443; 84479; 85025

== ENCOUNTER → 2018-11-03 15:05 | Outpatient (CLI) | payer MEDICARE, SELFPAY ==
--- NOTE | 2018-11-03 15:24 | CA_ITS ---
APPROVED REPORT Bilateral Lower Extremity Venous Study for DVT. 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 Indications Lower Extremity Pain: Lower Extremity Edema: Edema Risk Factors Malignancy Vein Imaging CFV (R): compressive, spontaneous, phasic, augmentation SFJ (R): compressive, spontaneous, phasic, augmentation FEM (R): compressive, spontaneous, phasic, augmentation POP (R): compressive, spontaneous, phasic, augmentation DFV (R): compressive, spontaneous, phasic, augmentation PTV (R): compressive, spontaneous, phasic, augmentation GSV (R): compressive, spontaneous, phasic, augmentation SSV (R): compressive, spontaneous, phasic, augmentation Peroneals (R):compressive, spontaneous, phasic, augmentation GAS (R): compressive, spontaneous, phasic, augmentation CFV (L): compressive, spontaneous, phasic, augmentation SFJ (L): compressive, spontaneous, phasic, augmentation FEM (L): compressive, spontaneous, phasic, augmentation POP (L): compressive, spontaneous, phasic, augmentation DFV (L): compressive, spontaneous, phasic, augmentation PTV (L): compressive, spontaneous, phasic, augmentation GSV (L): compressive, spontaneous, phasic, augmentation SSV (L): compressive, spontaneous, phasic, augmentation Peroneals (L):compressive, spontaneous, phasic, augmentation GAS (L): compressive, spontaneous, phasic, augmentation Findings Color flow duplex demonstrates no evidence of DVT of the bilateral lower extremity Veins. Color flow duplex demonstrates no evidence of SVT of the Small and Great . Conclusion Color flow duplex demonstrates no evidence of DVT of the bilateral lower extremity Veins:. Color flow duplex demonstrates no evidence of SVT of the Small and Great . Electronically signed by : Betito Loving MD 11/05/2018 14:25:04
== END ==
PROVIDERS: PCP Internal Medicine Adolescent Medicine; Visit Provider Internal Medicine Adolescent Medicine
DX: M79.604 Pain in right leg (principal); R60.9 Edema, unspecified
CPT/HCPCS: 93970

== ENCOUNTER → 2019-03-01 11:19 | Outpatient (POV) | payer MEDICARE, SELFPAY ==
[2019-03-01 11:58] VITALS: BP 166/85; PULSE 68; RESP 18; O2SAT 99; BMI 25.7
--- NOTE | 2019-03-01 12:10 | HMH.PAINSOAP ---
[facility] Pain Management SOAP Note Subjective:: Is a 69-year-old white female who presents today for follow-up. Patient rates her pain today an 8 out of 10 she states that she has not noted much of a difference since we turned her intrathecal pain pump off. Patient is currently on Percocet 5 mg 1 p.o. 4 times daily. Patient's Tonio #[id number] reviewed and appropriate. Patient states that the pain medication has been much more effective than her pain pump she would like the pain pump removed she states that she has pain in her right SI joint due to the pain pump. We will set her up for removal of the pain pump. ROS General: no recent weight change, no fever, no sleep disturbances Respiratory: no cough, no shortness of air, no recurring pulmonary infections Cardiovascular/Peripheral Vascular: No chest pain, No palpitations, no edema, no shortness of breath. Gastrointestinal: no new onset incontinence, normal bowel movements reported Genitourinary: no new onset incontinence Musculoskeletal: Back pain, right SI joint pain Psychiatric: normal mood/ affect Neurological: [denies new onset weakness in extremities], [denies new onset balance issues] Objective:: Physical Exam General: Alert and oriented x3, no acute distress, pleasant and cooperative, [on room air] Lungs: Resps E/U, Symmetrical chest expansion, Eyes: PERRL Musculoskeletal: Flexion and extension of lumbar spine somewhat guarded secondary to pain, deep tendon reflexes normal, strength in upper and lower extremities [5/5], [abnormal gait noted] Neurological: speech clear, event specialist product demonstrator equal, no gross sensory deficits Assessment:: Degenerative disc disease lumbar spine with lumbar radiculopathy symptoms and chest wall pain secondary to radiation Plan:: We will set the patient up for removal of her intrathecal pain pump for soon as possible. Is currently at 0 and she is not getting any medication. We will refill her Percocet 5 mg 1 p.o. 4 times daily and give her 1 month. Patient has been prescribed a controlled substance after being counseled on the medication, medication safety, and possible side effects. TONIO report has been obtained and reviewed prior to prescription and found to be appropriate. Opioid contract was reviewed and signed by the patient, and that they have agreed to all of the terms set forth by our compliance program.Dr. Jason has reviewed this note and agrees with this plan of care. This note was dictated using voice recognition software and may contain errors or omissions [facility] History I have reviewed the patient's past medical history: Yes Medical History: Reports:: Palpitations Denies:: Cancer, Diabetes Mellitus Type 1, Diabetes Mellitus Type 2, MRSA, Seizures *Have you ever received a pneumonia vaccine?: Yes *Have you received a flu vaccine this season?: Yes Other Medical History: Reports: Anemia, Arthritis, Chemotherapy, Fibromyalgia, Hypothyroidism, Radiation Therapy, Sinus Problems. Denies: Blood Transfusion Reaction Laterality Cases: Left: Arthroscopy Knee Other Surgeries: Yes: Sinus Surgery, Tubal Ligation Amputation: No Fractures: No - *Social History Smoking Status: Never smoker Alcohol Intake: never *Occupational Status:: other Housing: house Household Members: spouse *Travel in the last 8 weeks: None Family Hx:: No significant family history
== END ==
PROVIDERS: PCP Internal Medicine Adolescent Medicine; Visit Provider Clinical Nurse Specialist Family Health
DX: M51.16 Intervertebral disc disorders with radiculopathy, lumbar region (principal); G62.82 Radiation-induced polyneuropathy; R07.2 Precordial pain
CPT/HCPCS: 99212

== ENCOUNTER → 2019-03-29 14:28 | Outpatient (CLI) | payer MEDICARE, SELFPAY ==
[2019-03-29 14:56] LABS: Basophils # 0.1 K/mm3 (0-0.2); Basophils % 1.2 % (0.1-2.0); Eosinophils # 0.1 K/mm3 (0.0-0.4); Hematocrit 35.7 % (37.0-47.0); Hemoglobin 12.1 g/dL (12.2-16.2); Lymphocytes # 0.9 K/mm3 (0.7-4.5); Mean Corpuscular HGB Conc 33.9 g/dL (31.8-35.4); Mean Corpuscular Hemoglobin 31.4 pg (27.0-31.2); Mean Corpuscular Volume 92.4 fl (81-99); Mean Platelet Volume 7.2 fl (7.4-10.4); Monocytes # 0.4 K/mm3 (0.1-1.0); Neutrophils # 3.6 K/mm3 (1.8-7.8); Neutrophils % 71.9 % (37.0-80.0); Platelet Count 355 K/mm3 (142-424); Red Blood Count 3.86 M/mm3 (4.20-5.40); Red Cell Distribution Width 13.3 % (11.5-17.5)
[2019-03-29 15:33] LABS: Chloride 86 mmol/L (98-107)
[2019-03-29 15:34] LABS: Potassium 4.7 mmoL/L (3.5-5.1); Sodium 125 mmol/L (136-145)
[2019-03-29 15:36] LABS: Blood Urea Nitrogen 10 mg/dl (7-17); Estimated Glomerular Filt Rate 55 ml/min (>60); GFR (African American) 67 ML/MIN (>60)
[2019-03-29 15:37] LABS: Anion Gap 12.7 mEq/L (5-15); Calcium 8.5 mg/dl (8.4-10.2); Carbon Dioxide 31 mmol/L (22.0-30.0); Glucose 93 mg/dl (74-100)
== END ==
PROVIDERS: Clinical Nurse Specialist Family Health; Visit Provider Anesthesiology
DX: Z01.818 Encounter for other preprocedural examination (principal)
CPT/HCPCS: 36415; 80048; 85025

== ENCOUNTER → 2019-04-07 08:37 | Outpatient (POV) | payer MEDICARE, SELFPAY ==
[2019-04-07 08:41] VITALS: BP 137/72; PULSE 67; RESP 18; O2SAT 99; BMI 26.7
--- NOTE | 2019-04-07 08:58 | HMH.PAINSOAP ---
[facility] Pain Management SOAP Note Subjective:: Patient is a pleasant 69-year-old white female who presents today for follow-up. She recently had her intrathecal pain pump removed. Patient did not feel like she was getting adequate relief with intrathecal therapy. She says that she continued to have severe pain. Patient is managed with Percocet orally now. Patient says that her pain is a 6 out of 10 today. She is asking for increased medication. She says that the medication does not give her enough relief. She does say that when living in [place], she was given Percocet 10 mg 3-4 times daily. She says that they were much more effective for her pain. Patient says she has tried interventional therapies which have not worked for her. She is not interested in any type of injective therapy at this time. Review of Systems General: No recent weight changes, no fever, no sleep disturbances Respiratory: No cough, no shortness of air, no recurring pulmonary infections Cardiovascular/peripheral vascular: No chest pain, no palpitations, no edema, no shortness of breath Gastrointestinal: No new onset incontinence, normal bowel movements reported Genitourinary: No new onset incontinence Musculoskeletal: Low back pain Psychiatric: Normal mood/affect Neurological: [Denies weakness in extremities], [denies balance issues] Objective:: Physical exam General: Alert and oriented x3, no acute distress, pleasant and cooperative, [on room air] Lungs: Respirations even and unlabored, symmetrical chest expansion Eyes: PERRL Musculoskeletal: Flexion and extension of lumbar spine somewhat guarded secondary to pain, deep tendon reflexes normal, strength in upper and lower extremities [5/5], [abnormal gait noted] Neurological: Speech clear, equal opportunity director equal, no gross sensory deficit Assessment:: Degenerative disc disease lumbar spine with lumbar radiculopathy symptoms Plan:: Overall, the patient's incision site looks good. Her incision is well approximated, with no redness, no drainage, no edema noted to the site. Her sutures are intact. We will schedule her for return follow-up in 1 week for suture removal. Patient and I had a long discussion concerning oral medication regimen. She understands we will increase in her medication. Patient says if she does not get more medication that she will likely change pain management clinics. She does says she will stay with the clinic for now. If her pain worsens, patient says she will likely need to change clinics. Again, she says she is not interested in injective therapy at this time. We will see her back in a week to reassess her symptoms. She has been instructed to contact the clinic if she has any concerns before next appointment. Dr. Jason has reviewed this note and agrees with this plan of care. This note was dictated using voice recognition software and make contain errors or omissions. [facility] History I have reviewed the patient's past medical history: Yes Medical History: Reports:: Palpitations Denies:: Cancer, Diabetes Mellitus Type 1, Diabetes Mellitus Type 2, Internal Pacemaker, MRSA, Seizures *Have you ever received a pneumonia vaccine?: Yes *Have you received a flu vaccine this season?: Yes Other Medical History: Reports: Anemia, Arthritis, Chemotherapy, Fibromyalgia, Hypothyroidism, Radiation Therapy, Sinus Problems. Denies: Blood Transfusion Reaction Laterality Cases: Left: Arthroscopy Knee Other Surgeries: Yes: Sinus Surgery, Tubal Ligation. No: Pacemaker Amputation: No Fractures: No - *Social History Smoking Status: Never smoker Alcohol Intake: never Substance Use Type: other *Occupational Status:: other Housing: house Household Members: spouse *Travel in the last 8 weeks: None Family Hx:: No significant family history
== END ==
PROVIDERS: PCP Internal Medicine Adolescent Medicine; Visit Provider Clinical Nurse Specialist Family Health
DX: M51.16 Intervertebral disc disorders with radiculopathy, lumbar region (principal)
CPT/HCPCS: 99212

== ENCOUNTER → 2019-06-21 10:49 | Outpatient (POV) | payer MEDICARE, SELFPAY ==
--- NOTE | 2019-06-21 11:58 | P.CONS_ITS ---
[facility] Pain Management SOAP Note Subjective:: 69-year-old white female who presents today for follow-up and medication refills. She recently had her intrathecal pain pump removed. Patient felt that it was not adequately covering her pain. She was also on Percocet at the time. Patient is currently on Percocet 5 mg 1 p.o. 4 times daily. Patient and I discussed that if she needs medication management we would be unable to provide higher doses of medication and we discussed potentially transferring her to a closer clinic that would do medication management. She would like to discuss this at her next visit. She rates her pain 8 out of 10 today. ROS General: no recent weight change, no fever, no sleep disturbances Respiratory: no cough, no shortness of air, no recurring pulmonary infections Cardiovascular/Peripheral Vascular: No chest pain, No palpitations, no edema, no shortness of breath. Gastrointestinal: no new onset incontinence, normal bowel movements reported Genitourinary: no new onset incontinence Musculoskeletal: Back pain, leg pain Psychiatric: normal mood/ affect Neurological: [denies new onset weakness in extremities], [denies new onset balance issues] [facility] History I have reviewed the patient's past medical history: Yes Medical History: Reports:: Palpitations Denies:: Cancer, Diabetes Mellitus Type 1, Diabetes Mellitus Type 2, Internal Pacemaker, MRSA, Seizures *Have you ever received a pneumonia vaccine?: Yes *Have you received a flu vaccine this season?: Yes Other Medical History: Reports: Anemia, Arthritis, Chemotherapy, Fibromyalgia, Hypothyroidism, Radiation Therapy, Sinus Problems. Denies: Blood Transfusion Reaction Laterality Cases: Left: Arthroscopy Knee Other Surgeries: Yes: Sinus Surgery, Tubal Ligation. No: Pacemaker Amputation: No Fractures: No - *Social History Smoking Status: Never smoker Alcohol Intake: never Substance Use Type: other *Occupational Status:: retired Housing: house Household Members: spouse *Travel in the last 8 weeks: None Family Hx:: No significant family history
--- NOTE | 2019-06-21 12:10 | HMH.VVPMSO ---
[facility] PM Virtual Visit SOAP Consent for virtual visit:: With the recent concerns about the COVID-19, we are trying to minimize exposure to you by shifting to telehealth appointments whenever possible. It restricts me from seeing you in person, but the trade off is protecting you during this pandemic. Can you see and hear me okay, and do you consent to this option? If not, I would be happy to see if we can reschedule your appointment in the future, when feasible. Has patient consented to this virtual visit?: Yes Subjective:: 69-year-old white female who presents today for follow-up and medication refills. She recently had her intrathecal pain pump removed. Patient felt that it was not adequately covering her pain. She was also on Percocet at the time. Patient is currently on Percocet 5 mg 1 p.o. 4 times daily. Patient and I discussed that if she needs medication management we would be unable to provide higher doses of medication and we discussed potentially transferring her to a closer clinic that would do medication management. She would like to discuss this at her next visit. She rates her pain 8 out of 10 today. ROS General: no recent weight change, no fever, no sleep disturbances Respiratory: no cough, no shortness of air, no recurring pulmonary infections Cardiovascular/Peripheral Vascular: No chest pain, No palpitations, no edema, no shortness of breath. Gastrointestinal: no new onset incontinence, normal bowel movements reported Genitourinary: no new onset incontinence Musculoskeletal: Back pain, leg pain Psychiatric: normal mood/ affect Neurological: [denies new onset weakness in extremities], [denies new onset balance issues] Objective:: Physical exam: Constitutional: Healthy appearing, well-developed, alert, in no acute distress Psychiatric: Judgment and insight intact, Alert and oriented x4 Mood and affect: Mood normal, affect appropriate Head and face: Inspection: Normocephalic atraumatic, extraocular movement intact Respiratory: Breathing nonlabored, nondyspneic Cardiovascular: No cyanosis, clubbing, or edema observed Skin: Head and neck: Skin with no lesions or rash observed Gait: Able to walk without assistive device: Able to heel and toe walk Neurologic: Sensation grossly intact per patient Musculoskeletal: Decreased range of motion lumbar spine Assessment:: Degenerative disc disease lumbar spine lumbar radiculopathy Plan:: We will continue her Percocet 5 mg 1 p.o. 4 times daily and give her 2 months worth of medication. We will follow-up with her in 2 months and reassess her symptoms at that time. At this time we make transfer her to a medicine management pain clinic. She is been instructed to call the office if she has any issues prior to her next appointment. This encounter was performed as a telemedicine visit via secure 2 way video and audio to minimize risk and transmission of Covid-19. The patient and we understand the limitations of a telemedicine visit including inability to check reflexes, possibly missing subtle findings on physical exam. Alternative options were presented to the patient and the patient elected to proceed with the visit. We specifically discussed risk factors for Covid-19 including age, heart or lung disease, diabetes, immunosuppression and travel. We also discussed that NSAIDs may worsen Covid-19 infection symptoms and that they should not be used to treat Covid-19 symptoms. Patient was also informed that corticosteroids in any form oral or injectable will decrease immune response and may increase risk of Covid-[address] Jason has reviewed this patient's chart and this note and agrees with plan of care. Patient has been instructed to call the office if they have any issues prior to the next appointment. Patient has been prescribed a controlled substance after being counseled on the medication, medication safety, and possible side effects. TONIO report has been o
== END ==
PROVIDERS: Visit Provider Clinical Nurse Specialist Family Health
DX: M51.16 Intervertebral disc disorders with radiculopathy, lumbar region (principal)
CPT/HCPCS: 99212

== ENCOUNTER → 2019-07-22 12:29 | Outpatient (CLI) | payer MEDICARE, SELFPAY ==
[2019-07-22 13:43] LABS: Basophils % 0.5 % (0.1-2.0); Eosinophils # 0.1 K/mm3 (0.0-0.4); Eosinophils % 2.1 % (0.1-12.0); Hemoglobin 12.8 g/dL (12.2-16.2); Lymphocytes # 1.4 K/mm3 (0.7-4.5); Lymphocytes % 21.4 % (10-50); Mean Corpuscular HGB Conc 32.8 g/dL (31.8-35.4); Mean Corpuscular Hemoglobin 31.8 pg (27.0-31.2); Mean Corpuscular Volume 96.9 fl (81-99); Mean Platelet Volume 7.2 fl (7.4-10.4); Monocytes # 0.3 K/mm3 (0.1-1.0); Monocytes % 4.6 % (1.7-9.3); Neutrophils # 4.7 K/mm3 (1.8-7.8); Neutrophils % 71.4 % (37.0-80.0); Platelet Count 316 K/mm3 (142-424); Red Blood Count 4.02 M/mm3 (4.20-5.40); Red Cell Distribution Width 14.2 % (11.5-17.5); White Blood Count 6.6 K/mm3 (4.8-10.8)
[2019-07-22 14:53] LABS: Chloride 104 mmol/L (98-107); Potassium 4.2 mmoL/L (3.5-5.1); Sodium 135 mmol/L (136-145)
[2019-07-22 14:55] LABS: Blood Urea Nitrogen 5 mg/dl (7-17)
[2019-07-22 14:56] LABS: Alanine Aminotransferase 15 U/L (12-78); Albumin Level 3.4 g/dl (3.5-5.0); Albumin/Globulin Ratio 1.3 (1.1-1.8); Alkaline Phosphatase 153 U/L (38-126); Anion Gap 8.2 mEq/L (5-15); Aspartate Amino Transferase 28 U/L (14-36); Bilirubin,Total 0.5 mg/dl (0.2-1.3); Calcium 8.4 mg/dl (8.4-10.2); Carbon Dioxide 27 mmol/L (22.0-30.0); Cholesterol 105 mg/dl (140-200); Estimated Glomerular Filt Rate 55 ml/min (>60); GFR (African American) 67 ML/MIN (>60); Globulin 2.6 g/dL (1.3-3.2); Glucose 81 mg/dl (74-100); Triglycerides 83 mg/dl (30-150); VLDL Cholesterol 17 mg/dL (0-40)
[2019-07-22 14:57] LABS: Chol/HDL Ratio 1.2 (1-3.5); HDL Cholesterol 88 mg/dl (40-60)
[2019-07-22 15:14] LABS: Free Thyroxine Index 2.6 ug/dL (5.93-13.13); Triiodothryronine (T3) Uptake 33 % (23.5-40.5)
[2019-07-22 15:27] LABS: Thyroid Stimulating Hormone 2.02 uIU/mL (0.465-4.68)
[2019-07-22 15:31] LABS: Ferritin 82.4 ng/ml (11.1-264)
[2019-07-22 16:32] LABS: Direct LDL Cholesterol < 30.00 mg/dL (100-129)
[2019-07-23 09:28] LABS: Vitamin B12 1696 pg/mL (232-1245)
[2019-07-28 17:09] LABS: Methylmalonic Acid 233 nmol/L (0-378)
== END ==
PROVIDERS: Visit Provider Internal Medicine Adolescent Medicine
DX: D50.8 Other iron deficiency anemias (principal); E78.5 Hyperlipidemia, unspecified; E03.9 Hypothyroidism, unspecified; E53.8 Deficiency of other specified B group vitamins
CPT/HCPCS: 36415; 80053; 80061; 82131; 82607; 82728; 84436; 84443; 84479; 85025

== ENCOUNTER → 2019-09-19 11:05 | Outpatient (POV) | payer MEDICARE, SELFPAY ==
[2019-09-19 11:53] VITALS: BP 142/78; PULSE 73; RESP 18; O2SAT 99; BMI 26.7
--- NOTE | 2019-09-19 12:48 | HMH.PAINSOAP ---
[facility] Pain Management SOAP Note Subjective:: Patient is a pleasant 69-year-old white female who presents today for medication refills. She is recently had her intrathecal pain pump removed. She felt that it was not adequately covering her pain. She is also on Percocet at the time. She is currently on Percocet 5 mg 1 p.o. 4 times daily. She states that this does not manage her pain. She rates her pain a 10 out of 10. Patient states that she believes she needs to be on more medication. I do believe that she would be a good candidate for medication management I discussed with her that we do not do that at our clinic. She is interested in looking into other options. She currently is living in [place]. ROS General: no recent weight change, no fever, no sleep disturbances Respiratory: no cough, no shortness of air, no recurring pulmonary infections Cardiovascular/Peripheral Vascular: No chest pain, No palpitations, no edema, no shortness of breath. Gastrointestinal: no new onset incontinence, normal bowel movements reported Genitourinary: no new onset incontinence Musculoskeletal: Back pain, leg pain, intercostal pain Psychiatric: normal mood/ affect Neurological: [denies new onset weakness in extremities], [denies new onset balance issues] Objective:: Physical Exam General: Alert and oriented x3, no acute distress, pleasant and cooperative, [on room air] Lungs: Resps E/U, Symmetrical chest expansion, Eyes: PERRL Musculoskeletal: Flexion and extension of lumbar spine somewhat guarded secondary to pain, deep tendon reflexes normal, strength in upper and lower extremities [5/5], [abnormal gait noted] Neurological: speech clear, career representative equal, no gross sensory deficits Assessment:: Neuropathy, degenerative disc disease lumbar spine lumbar radiculopathy Plan:: Patient overall has done well with this. I do believe she needs a transfer to a pain management clinic that does medication management. She agrees. We will continue to prescribe Percocet 5 mg 1 p.o. 4 times daily. We will move forward with getting this referral for her. She is in good standing with our clinic. Dr. Jason has reviewed this note and agrees with this plan of care. This note was dictated using voice recognition software and may contain errors or omissions Patient has been prescribed a controlled substance after being counseled on the medication, medication safety, and possible side effects. TONIO report has been obtained and reviewed prior to prescription and found to be appropriate. Opioid contract was reviewed and signed by the patient, and that they have agreed to all of the terms set forth by our compliance program. [facility] History I have reviewed the patient's past medical history: Yes Medical History: Reports:: Palpitations Denies:: Cancer, Diabetes Mellitus Type 1, Diabetes Mellitus Type 2, Internal Pacemaker, MRSA, Seizures *Have you ever received a pneumonia vaccine?: Yes *Have you received a flu vaccine this season?: Yes Other Medical History: Reports: Anemia, Arthritis, Chemotherapy, Fibromyalgia, Hypothyroidism, Radiation Therapy, Sinus Problems. Denies: Blood Transfusion Reaction Laterality Cases: Left: Arthroscopy Knee Other Surgeries: Yes: Sinus Surgery, Tubal Ligation. No: Pacemaker Amputation: No Fractures: No - *Social History Smoking Status: Never smoker Alcohol Intake: never Substance Use Type: other *Occupational Status:: other Housing: house Household Members: spouse *Travel in the last 8 weeks: None Family Hx:: No significant family history
== END ==
PROVIDERS: PCP Internal Medicine Adolescent Medicine; Visit Provider Clinical Nurse Specialist Family Health
DX: G62.9 Polyneuropathy, unspecified (principal); M51.16 Intervertebral disc disorders with radiculopathy, lumbar region
CPT/HCPCS: 99212

== ENCOUNTER → 2019-09-26 15:10 | Outpatient (CLI) | payer MEDICARE, SELFPAY ==
--- NOTE | 2019-09-26 | XR_ITS ---
PROCEDURE: XR HIP RT 2-3V W/PELVIS CLINICAL INDICATION: LOW BACK PAIN MULTIPLE SITES, PAIN IN RT HIP COMPARISON: No exams were available for comparison FINDINGS: There are mild osteoarthritic changes of the right hip with some decrease in the joint space and osteophyte formation the acetabulum. No acute fracture or dislocation. No lytic or blastic change. IMPRESSION: Mild osteoarthritis Dictated by: Betito Loving MD 09/26/2019 18:03 Betito Loving MD in [place] 09/26/2019 18:03
--- NOTE | 2019-09-26 | XR_ITS ---
PROCEDURE: XR MULTIPLE SPINE 6+V CLINICAL INDICATION: LOW BACK PAIN MULTIPLE SITES, PAIN IN LT HIP AND RT HIP COMPARISON: No exams were available for comparison FINDINGS: Thoracic spine: Minimal thoracic curvature convex left. Mild degenerative changes. No acute fracture or dislocation. No lytic or blastic change. Lumbar spine: Minimal lumbar curvature convex right. There is an intrathecal catheter present. The catheter tip superiorly is at the L1 level and enters the thecal sac dorsally at the L4-5 level. There is degenerative disc disease at L2-L3 L3-L4 4 5 and L5-S1. Anterior osteophytes are present. No definite acute fracture.. No lytic or blastic change. Prominent anterior osteophytes are present at L3-L4 and. IMPRESSION: Multilevel thoracic and lumbar spondylosis as detailed Dictated by: Betito Loving MD 09/26/2019 18:02 Betito Loving MD in [place] 09/26/2019 18:02
--- NOTE | 2019-09-26 | XR_ITS ---
PROCEDURE: XR HIP LT 2-3V W/PELVIS CLINICAL INDICATION: LOW BACK PAIN MULTIPLE SITES, PAIN IN LT HIP COMPARISON: No exams were available for comparison FINDINGS: There are mild osteoarthritis changes of the left hip with decrease in the joint space and acetabular osteophyte formation. There is a small sclerotic focus overlying greater trochanter on the left 5 mm and may be due to a bone island. IMPRESSION: Mild osteoarthritis of the left hip Dictated by: Betito Loving MD 09/26/2019 18:04 Betito Loving MD in [place] 09/26/2019 18:04
== END ==
PROVIDERS: PCP Internal Medicine Adolescent Medicine; Visit Provider Internal Medicine Adolescent Medicine
DX: M54.5 Low back pain (principal); M25.552 Pain in left hip; M25.551 Pain in right hip
CPT/HCPCS: 72084; 73502

== ENCOUNTER → 2019-12-26 14:36 | Outpatient (CLI) | payer MEDICARE, SELFPAY ==
--- NOTE | 2019-12-26 14:38 | MM_ITS ---
PROCEDURE: MM DIG SCREENING MAMM BI W/CAD Digital Breast Tomosynthesis Included CLINICAL INDICATION: SCREENING No personal or family history of breast cancer. COMPARISON: MG DMSB DIG MAMM-SCREEN STAN from 11/28/2014 MG [id number] DIG MAMM-DX UNI ADD VIEWS-RT from 12/26/2014 MG DMDB DIG MAMM-DX STAN from 11/29/2015 TECHNIQUE: Standard CC and MLO images and 3D Tomosynthesis was obtained. R2 CAD reviewed. FINDINGS: Mild scattered fibroglandular densities are seen throughout both breasts on a background of primarily fatty breast parenchyma. The findings are bilateral and symmetrical. There is no suspicious lesion and no suspicious microcalcifications. IMPRESSION: Fibrofatty parenchyma with no suspicious lesions seen BI-RAD Category: 1 Negative FOLLOW-UP: 1YR 1 Year Follow-up (A letter has been sent to the patient regarding results of the study.) Dictated by: Dr. Austin Gibson MD 12/30/2019 09:57 Dr. Austin Gibson MD in [place] 12/30/2019 09:57
--- NOTE | 2019-12-26 14:39 | XR_ITS ---
PROCEDURE: XR DEXA AXIAL SKELETON CLINICAL HISTORY: ASYMPTOMATIC MENOPAUSE COMPARISON: No exams were available for comparison FINDINGS: The right hip BMD is 0.546 with a T-score of -2.7. The left hip BMD is 0.492 with a T-score of -3.2. The lumbar spine BMD is 1.092 with a T-score of 0.4. IMPRESSION: This patient is considered osteoporotic according to the World Health Organization criteria. Fracture risk is high. Treatment is advised. Based on these results a follow-up exam is recommended in 1 year. Dictated by: Betito Loving MD 12/27/2019 12:42 Betito Loving MD in [place] 12/27/2019 12:42
== END ==
PROVIDERS: PCP Internal Medicine Adolescent Medicine; Visit Provider Nurse Practitioner Family
DX: Z12.31 Encounter for screening mammogram for malignant neoplasm of breast (principal); Z13.820 Encounter for screening for osteoporosis; Z78.0 Asymptomatic menopausal state
CPT/HCPCS: 77063; 77067; 77080

== ENCOUNTER → 2020-05-31 15:19 | Outpatient (CLI) | payer MEDICARE, SELFPAY ==
--- NOTE | 2020-05-31 15:37 | XR_ITS ---
PROCEDURE: XR CHEST 2V CLINICAL HISTORY: COUGH COMPARISON: CR CXR2V XR chest 2V from 11/27/2017 CR XR MULTIPLE SPINE 6+V from 09/26/2019 FINDINGS: The cardiomediastinal silhouette and pulmonary vascularity are within normal limits. There remains increased density in both upper lobes medially and may be related to radiation fibrotic changes or residual recurrence neoplasm. Chest CT with contrast may provide further evaluation. Silhouetting out of the hemidiaphragm on the left which may be due to abutting pericardial fat pad similar to the previous exam. No acute bony findings IMPRESSION: Nonspecific increased density in the upper lobes medially and posteriorly which could be related to postradiation changes or residual or recurrence neoplasm. Chest CT with contrast may provide further evaluation. Dictated by: Betito Loving MD 05/31/2020 16:06 Betito Loving MD in [facility] 05/31/2020 16:06
[2020-05-31 16:10] LABS: Basophils # 0.1 K/mm3 (0-0.2); Basophils % 1.1 % (0.1-2.0); Eosinophils # 0.2 K/mm3 (0.0-0.4); Eosinophils % 2.4 % (0.1-12.0); Hematocrit 38.7 % (37.0-47.0); Hemoglobin 12.4 g/dL (12.2-16.2); Lymphocytes # 1.2 K/mm3 (0.7-4.5); Lymphocytes % 19.3 % (10-50); Mean Corpuscular Hemoglobin 32.5 pg (27.0-31.2); Mean Corpuscular Volume 101.4 fl (81-99); Mean Platelet Volume 7.2 fl (7.4-10.4); Monocytes # 0.3 K/mm3 (0.1-1.0); Monocytes % 5.4 % (1.7-9.3); Neutrophils # 4.5 K/mm3 (1.8-7.8); Neutrophils % 71.8 % (37.0-80.0); Platelet Count 352 K/mm3 (142-424); Red Blood Count 3.81 M/mm3 (4.20-5.40); Red Cell Distribution Width 13.7 % (11.5-17.5); White Blood Count 6.3 K/mm3 (4.8-10.8)
[2020-05-31 16:53] LABS: Alanine Aminotransferase 13 U/L (12-78); Albumin Level 3.7 g/dl (3.5-5.0); Albumin/Globulin Ratio 1.5 (1.1-1.8); Alkaline Phosphatase 102 U/L (38-126); Anion Gap 10.8 mEq/L (5-15); Aspartate Amino Transferase 26 U/L (14-36); Bilirubin,Total 0.4 mg/dl (0.2-1.3); Blood Urea Nitrogen 8 mg/dl (7-17); Calcium 8.9 mg/dl (8.4-10.2); Carbon Dioxide 28 mmol/L (22.0-30.0); Chloride 96 mmol/L (98-107); Chol/HDL Ratio 1.8 (1-3.5); Cholesterol 115 mg/dl (140-200); Estimated Glomerular Filt Rate 49 ml/min (>60); GFR (African American) 60 ML/MIN (>60); Globulin 2.5 g/dL (1.3-3.2); Glucose 89 mg/dl (74-100); HDL Cholesterol 64 mg/dl (40-60); Potassium 4.8 mmoL/L (3.5-5.1); Sodium 130 mmol/L (136-145); Total Protein,Serum 6.2 g/dl (6.3-8.2); Triglycerides 114 mg/dl (30-150); VLDL Cholesterol 23 mg/dL (0-40)
[2020-05-31 17:31] LABS: Direct LDL Cholesterol < 30.00 mg/dL (100-129)
[2020-05-31 17:41] LABS: Vitamin B12 942 pg/mL (239-931)
[2020-05-31 18:10] LABS: Ferritin 146 ng/ml (11.1-264)
[2020-06-02 08:58] LABS: Thyroid Peroxidase Antibodies 10 IU/mL (0-34)
== END ==
PROVIDERS: PCP Internal Medicine Adolescent Medicine; Visit Provider Internal Medicine Adolescent Medicine
DX: E03.9 Hypothyroidism, unspecified (principal); E78.5 Hyperlipidemia, unspecified; D50.8 Other iron deficiency anemias; E53.8 Deficiency of other specified B group vitamins; R05 Cough
CPT/HCPCS: 36415; 71046; 80053; 80061; 82607; 82728; 85025; 86376

== ENCOUNTER → 2020-08-29 16:32 | Outpatient (CLI) | payer MEDICARE, SELFPAY ==
[2020-08-29 16:35] LABS: Microscopic, Urine URINE MICROSCOPIC (MICROSCOPIC)
[2020-08-29 16:52] LABS: Appearance,Urine SL CLOUDY (Clear); Bilirubin,Urine Negative (Negative); Blood, Urine TRACE-I (Negative); Color,Urine YELLOW (Yellow); Glucose,Urine (UA) Negative (Negative); Ketones,Urine Negative (Negative); Leukocyte Esterase,Urine Negative (Negative); Nitrate,Urine Negative (Negative); PH,Urine 5.5 (5.0-8.5); Protein,Urine Negative (Negative); Urobilinogen,Urine 0.2 EU/dl (0.2)
[2020-08-29 17:21] LABS: RBC,Urine Occasional #/hpf (0-3)
== END ==
PROVIDERS: Visit Provider Internal Medicine Adolescent Medicine
DX: Z87.440 Personal history of urinary (tract) infections (principal); R82.90 Unspecified abnormal findings in urine
CPT/HCPCS: 81001; 87086

== ENCOUNTER → 2020-09-06 12:06 | Outpatient (CLI) | payer MEDICARE, SELFPAY ==
--- NOTE | 2020-09-06 12:41 | CT_ITS ---
PROCEDURE: CT CHEST W CON CLINCAL INDICATION: H/O LUNG CA Lung cancer x18yrs ago No prior COMPARISON: CR XR CHEST 2V from 05/31/2020 TECHNIQUE: IV Contrast: 75ml Isovue 370 Axial images obtained with sagittal and coronal reformats. All CT scans at the facility use one or more dose reduction, viz: automated exposure control, ma/kV adjustment per patient size (including targeted exams where dose is matched to indication, i.e. head), or iterative reconstruction technique. FINDINGS: There are no previous exams available for comparison. History of lung cancer is given. No obvious mediastinal mass or mediastinal adenopathy is evident. No evidence of aortic aneurysm or central pulmonary embolus.. There is mild thickening of the pericardium suggesting small pericardial effusion measuring up to 12 mm in thickness. Centrilobular emphysematous changes are present. Mild pulmonary fibrotic changes are also noted. There is consolidation with volume loss in the medial aspect of the left upper lobe anteriorly and posteriorly and in the left lower lobe medially and superiorly with air bronchograms. These findings are nonspecific and could be inflammatory or infectious in nature. Radiation fibrosis is also considered. Please correlate with previous exams. There is also increased density with air bronchograms in the right upper lobe medially but not near as prominent as on the left side and also could be due to some radiation fibrotic change. No pleural effusion is evident. In the left apex there is a parenchymal opacity measuring 12 x 16 x 8 mm.. This could be due to an area of pulmonary fibrosis. Developing nodule would be included in the differential diagnosis. Please correlate with previous studies if available. No acute bony findings. IMPRESSION: 1. Extensive consolidation in the left upper lobe medially and in the superior segment of the left lower lobe with air bronchograms and volume loss. This could be related to radiation fibrosis in the appropriate clinical setting. Pneumonia with volume loss also considered. Similar but less apparent finding noted in the right upper lobe medially. 2. COPD with centrilobular emphysema and mild pulmonary fibrotic changes. 3. Indeterminate 16 mm opacity in the left apex possibly due to an area of scarring still versus developing nodule. Correlation with previous study suggested. If none are available then would recommend follow-up chest CT in 3 months 4. Pericardial effusion Dictated by: Betito Loving MD 09/07/2020 09:02 Betito Loving MD in [facility] 09/07/2020 09:02
[2020-09-06 12:44] LABS: Blood Urea Nitrogen 5 mg/dl (7-17); Estimated Glomerular Filt Rate 55 ml/min (>60); GFR (African American) 67 ML/MIN (>60)
[2020-09-06 12:47] LABS: Basophils # 0.1 K/mm3 (0-0.2); Basophils % 0.8 % (0.1-2.0); Eosinophils # 0.4 K/mm3 (0.0-0.4); Eosinophils % 4.6 % (0.1-12.0); Hematocrit 35.2 % (37.0-47.0); Hemoglobin 11.2 g/dL (12.2-16.2); Lymphocytes # 1.2 K/mm3 (0.7-4.5); Lymphocytes % 13.6 % (10-50); Mean Corpuscular HGB Conc 31.9 g/dL (31.8-35.4); Mean Corpuscular Hemoglobin 31.2 pg (27.0-31.2); Mean Corpuscular Volume 97.8 fl (81-99); Mean Platelet Volume 7.4 fl (7.4-10.4); Monocytes # 0.5 K/mm3 (0.1-1.0); Monocytes % 5.4 % (1.7-9.3); Neutrophils # 6.4 K/mm3 (1.8-7.8); Neutrophils % 75.7 % (37.0-80.0); Platelet Count 493 K/mm3 (142-424); Red Blood Count 3.59 M/mm3 (4.20-5.40); Red Cell Distribution Width 14.7 % (11.5-17.5); White Blood Count 8.5 K/mm3 (4.8-10.8)
[2020-09-06 13:29] LABS: Triiodothryronine (T3) Uptake 34 % (23.5-40.5)
[2020-09-06 13:30] LABS: Free Thyroxine Index 3.4 ug/dL (5.93-13.13); T4 (Thyroxine) 9.9 ug/dl (5.53-11.0)
== END ==
PROVIDERS: PCP Internal Medicine Adolescent Medicine; Visit Provider Internal Medicine Adolescent Medicine
DX: R05 Cough (principal); E03.9 Hypothyroidism, unspecified; Z85.118 Personal history of other malignant neoplasm of bronchus and lung
CPT/HCPCS: 36415; 71260; 82565; 84436; 84443; 84479; 84520; 85025; Q9967

== ENCOUNTER → 2020-10-01 13:42 | Outpatient (CLI) | payer MEDICARE, SELFPAY ==
[2020-10-01 14:51] LABS: Chloride 94 mmol/L (98-107)
[2020-10-01 14:52] LABS: Potassium 3.2 mmoL/L (3.5-5.1); Sodium 136 mmol/L (136-145)
[2020-10-01 14:54] LABS: Blood Urea Nitrogen 11 mg/dl (7-17); Estimated Glomerular Filt Rate 55 ml/min (>60); GFR (African American) 67 ML/MIN (>60)
[2020-10-01 14:55] LABS: Anion Gap 12.2 mEq/L (5-15); Carbon Dioxide 33 mmol/L (22.0-30.0); Glucose 86 mg/dl (74-100)
== END ==
PROVIDERS: Visit Provider Internal Medicine Adolescent Medicine
DX: I50.22 Chronic systolic (congestive) heart failure (principal)
CPT/HCPCS: 36415; 80048

== ENCOUNTER → 2021-03-07 16:07 | Outpatient (CLI) | payer MEDICARE, SELFPAY ==
--- NOTE | 2021-03-07 16:16 | XR_ITS ---
PROCEDURE INFORMATION: Exam: XR Chest Exam date and time: 03/07/2021 4:16 PM Age: 71 years old Clinical indication: Condition or disease; Other: Pneumonia; Additional info: Community aquired pneumonia TECHNIQUE: Imaging protocol: XR of the chest. Views: 2 views. COMPARISON: CT CHEST W CON 09/06/2020 1:04 PM FINDINGS: Lungs: Left basilar opacities partially silhouette the diaphragm are favored to represent combination of atelectasis/pleural effusion/consolidation. Pleural spaces: See Lungs finding. Heart/Mediastinum: Unremarkable. No cardiomegaly. Bones/joints: Unremarkable. IMPRESSION: Left basilar opacities partially silhouette the diaphragm are favored to represent combination of atelectasis/pleural effusion/consolidation.
[2021-03-07 17:29] LABS: Basophils # 0.1 K/mm3 (0-0.2); Basophils % 0.5 % (0.1-2.0); Eosinophils # 0.2 K/mm3 (0.0-0.4); Hemoglobin 10.4 g/dL (12.2-16.2); Mean Corpuscular HGB Conc 31.6 g/dL (31.8-35.4); Mean Corpuscular Hemoglobin 30.1 pg (27.0-31.2); Mean Corpuscular Volume 95.3 fl (81-99); Mean Platelet Volume 7.3 fl (7.4-10.4); Monocytes # 0.7 K/mm3 (0.1-1.0); Monocytes % 6.4 % (1.7-9.3); Neutrophils # 8.9 K/mm3 (1.8-7.8); Platelet Count 428 K/mm3 (142-424); Red Blood Count 3.46 M/mm3 (4.20-5.40); Red Cell Distribution Width 14.9 % (11.5-17.5); White Blood Count 10.9 K/mm3 (4.8-10.8)
[2021-03-07 17:55] LABS: Alanine Aminotransferase 9 U/L (12-78); Albumin Level 3.6 g/dl (3.5-5.0); Albumin/Globulin Ratio 1.2 (1.1-1.8); Alkaline Phosphatase 112 U/L (38-126); Anion Gap 10.9 mEq/L (5-15); Aspartate Amino Transferase 24 U/L (14-36); Bilirubin,Total 0.4 mg/dl (0.2-1.3); Blood Urea Nitrogen 6 mg/dl (7-17); Calcium 8.6 mg/dl (8.4-10.2); Carbon Dioxide 32 mmol/L (22.0-30.0); Chloride 88 mmol/L (98-107); Estimated Glomerular Filt Rate 71 ml/min (>60); GFR (African American) 86 ML/MIN (>60); Globulin 2.9 g/dL (1.3-3.2); Glucose 96 mg/dl (74-100); Potassium 3.9 mmoL/L (3.5-5.1); Sodium 127 mmol/L (136-145); Total Protein,Serum 6.5 g/dl (6.3-8.2)
[2021-03-07 18:02] LABS: NT Pro Brain Natriuretic Pep. 1540 pg/mL (0-125)
== END ==
PROVIDERS: PCP Internal Medicine Adolescent Medicine; Visit Provider Internal Medicine Adolescent Medicine
DX: J18.9 Pneumonia, unspecified organism (principal); I50.23 Acute on chronic systolic (congestive) heart failure
CPT/HCPCS: 36415; 71046; 80053; 83880; 85025